=== PATIENT | male | born 1970 | race Caucasian/White ===

== ENCOUNTER → 2017-07-22 05:57 | Day surgery (SDC) | payer OTHER ==
--- NOTE | 2017-07-14 21:42 | HP ---
CC: Dr. Kike Mason; Dr. Gee; Dr. Douglas Varma * ADMITTING HISTORY AND PHYSICAL: DATE OF ADMISSION: 07/22/17 ADMITTING DIAGNOSES: 1. Gross hematuria. 2. Calculus, left ureter. PLANNED PROCEDURE: Left ureteroscopy, possible laser and stent insertion. SURGEON: Gabriel Fontenot MD HISTORY OF PRESENT ILLNESS: Bayron Pino is a 47-year-old gentleman who was evaluated for a 3 to 4-week history of gross hematuria. A CT urogram was obtained by Dr. Mason, which revealed a 6 mm calculus in the left distal ureter with mild obstructive findings. He has been seen in followup on a couple of occasion and a recent x-ray revealed a persistent calculus in the left distal ureter and he would now like to have it removed and is being brought in for left ureteroscopy. PAST MEDICAL HISTORY: Significant for: 1. Chronic pain syndrome. 2. Asthma. 3. COPD. 4. Degeneration of lumbar intervertebral disk. 5. Trigeminal neuralgia. 6. Restless leg syndrome. 7. History of Hodgkin's lymphoma in 1991. PAST SURGICAL HISTORY: Significant for: 1. Cervical lymph node biopsy. 2. [id number] insertion for chemotherapy. MEDICATIONS: On admission: 1. Metaxalone 800 mg for back pain. 2. Hydromorphone 4 mg. 3. Pentoxifylline 400 mg a day. 4. Ventolin inhaler daily. 5. Loratadine 10 mg daily. 6. Gabapentin 100 mg a day. 7. Topamax 100 mg a day. 8. Buspirone 10 mg daily. 9. Clonazepam 0.5 mg p.r.n. 10. Montelukast 10 mg. 11. Aspirin 81 mg. 12. Albuterol inhaler daily. 13. Oxymorphone extended release 15 mg. 14. ProAir inhaler. ALLERGIES AND INTOLERANCES: RABIES VACCINE. SMOKING HISTORY: He is a chronic 1 pack per day smoker for the last 30 years. PHYSICAL EXAMINATION GENERAL: Revealed a pleasant middle-aged gentleman. VITAL SIGNS: Blood pressure is 110/80, pulse 83 per minute, oxygen saturation 97% on room air. LUNGS: Clear bilaterally. CARDIOVASCULAR: Regular rate and rhythm. S1, S2. ABDOMEN: Soft with mild left flank tenderness. IMPRESSION: A 47-year-old gentleman with episodic gross hematuria secondary to a 6 mm calculus in the left distal ureter with mild obstructive findings. Planned procedure is left ureteroscopy, possible laser and stent insertion. [id number]/[facility] #: [id number] [facility]
[~2017-07-22 05:57] MED LIST: Buffered Lidocaine 0.9% SYRIN* 5 ML/SYR SYRINGE INTRADERM ONE; Buffered Lidocaine 0.9% SYRIN* 5 ML/SYR SYRINGE ONE; Dexamethasone IV* 4 MG/ML 1 ML (4 MG) ONE; HYDROcodone/ACETAMIN 5-325 MG* 1 TAB PO PRN; HYDROmorphone INJ* 1 MG/ML CARPUJECT SYRINGE IV PRN; Iohexol 180 (CONTRAST) 10 ML SDV IV ONE; Midazolam* 1 MG/ML 5 ML VIAL (5 MG) ONE; Naloxone* 0.4 MG/ML 1 ML VIAL IV PRN; Ondansetron INJ* 2 MG/ML VIAL IV PRN; Ondansetron INJ* 2 MG/ML VIAL ONE; Tamsulosin CAP* 0.4 MG ONE; cefTRIAXone(*) 2 GM ADDV.VIAL IVPB ONE; fentaNYL* 50 MCG/ML 2 ML VIAL (100 MCG VIAL) IV PRN; fentaNYL* 50 MCG/ML 2 ML VIAL (100 MCG VIAL) ONE; oxyCODONE/Acetamin 5/325 MG* TAB ONE; oxyCODONE/Acetamin 5/325 MG* TAB PO PRN
--- NOTE | 2017-07-22 08:56 | RAD ---
INDICATION: Left ureteral stent insertion COMPARISONS: CT dated June 23, 2017 TECHNIQUE: Fluoroscopy was provided for a retrograde pyelogram and stent placement. Total fluoroscopy time is: 0.1 minutes FINDINGS: Spot images of the straight contrast within the renal collecting system. There is a defect of the proximal ureter which may reflect calculus given history. A ureteral stent is noted. IMPRESSION: FLUOROSCOPY WAS PROVIDED FOR A RETROGRADE PYELOGRAM AND STENT PLACEMENT CPT II Codes: G9500
--- NOTE | 2017-07-22 09:52 | OP ---
CC: Dr. Kike Mason * DATE OF OPERATION: 07/22/17 - [facility] DATE OF : 68 SURGEON: Gabriel Fontenot MD ANESTHESIOLOGIST: Dr. Ortega. ANESTHESIA: General. PRE-OP DIAGNOSES: 1. Gross hematuria. 2. Calculus, left ureter. POST-OP DIAGNOSES: 1. Gross hematuria. 2. Calculus, left ureter. OPERATIVE PROCEDURE: Cystoscopy, left retrograde pyelogram, left ureteroscopy and stone extraction, and left stent insertion. COMPLICATIONS: None. POSTOPERATIVE CONDITION: Stable. STENT USED: A 7-Libyan stent, left ureter. OPERATIVE FINDINGS: 1. Mildly enlarged prostate. 2. Approximately 6 mm calculus left ureter with minimal hydronephrosis, but fairly narrow ureteral orifice. INDICATIONS: Bayron Pino is a 47-year-old gentleman who initially had gross hematuria. This was noted to be secondary to calculus in the left distal ureter , which he still has not been able to pass and he is now being brought in for removal of the same. DESCRIPTION OF PROCEDURE: After induction of general anesthesia, the patient was placed in dorsal lithotomy position. Sequential compression devices were in place and functioning. Initial cystoscopy revealed a normal-appearing urethra and mildly enlarged vascular prostate, the bladder was entered and examined and appeared unremarkable. A guidewire was introduced into the left ureter. The left orifice was somewhat smaller than normal in position which may explain why the calculus has not passed. Retrograde pyelogram revealed minimal fullness of the left collecting system. A 6-Libyan semi-rigid ureteroscope was introduced and advanced under direct vision about 1 cm or 2 above the orifice; 6-mm calculus was noted with some mild surrounding inflammatory response. Using a three-pronged grasper, the stone was engaged and fragmented into 2 pieces, both the pieces were successfully removed. The ureteroscope was reintroduced to make sure there were no additional sizable fragments and none were noted. A 7-Libyan stent was introduced and positioned under fluoroscopy with good proximal and distal positioning obtained. A Sharif catheter was placed for temporary bladder drainage. The patient tolerated the procedure satisfactorily and was transferred back to the recovery area in stable condition. [id number]/[facility] #: [id number] [facility]
[2017-07-22 10:51] VITALS: BP 134/83
== END | disposition home or self-care (01) ==
LOC: OR 05:57
PROVIDERS: ATTEND Urology
DX: N20.1 Calculus of ureter (principal); R31.0 Gross hematuria; G89.4 Chronic pain syndrome; J44.9 Chronic obstructive pulmonary disease, unspecified; G25.81 Restless legs syndrome; Z85.71 Personal history of Hodgkin lymphoma; G50.0 Trigeminal neuralgia
CPT/HCPCS: 74420; 82365; 88300; A9270-GY; C1876; J0696; J1100; J2250; J2405; J3010

== ENCOUNTER 2017-12-14 05:42 | Emergency (ER) | payer OTHER ==
[2017-12-14] MEDS ORDERED: Ondansetron ODT TAB* 4 MG SL ONE (05:52)
[2017-12-14 06:21] LABS: ABS Basophils 0 10^3/ul (0-0.2); ABS Eosinophils 0 10^3/ul (0-0.6); ABS Lymphocytes 1.8 10^3/ul (1.0-4.8); ABS Monocytes 0.8 10^3/ul (0-0.8); ABS Neutrophils 7.5 10^3/ul (1.5-7.7); ABS Nucleated RBC 0 10^3/ul; Eosinophil % 0.2 % (0-6); Hematocrit 44 % (42-52); Hemoglobin 15.2 g/dl (14.0-18.0); Lymphocyte % 17.6 % (25-47); Mean Corpuscular HGB Conc 35 g/dl (31-36); Mean Corpuscular Hemoglobin 30 pg (27-31); Mean Corpuscular Volume 87 fL (80-94); Mean Platelet Volume 7.5 um3 (7.4-10.4); Nucleated Red Blood Cells % 0; Platelet Count 286 10^3/ul (150-450); Red Blood Count 4.99 10^6/ul (4.00-5.40); Red Cell Distribution Width 14 % (10.5-15); White Blood Count 10.1 10^3/ul (3.5-10.8)
[2017-12-14 06:25] LABS: Urine Appearance Clear; Urine Blood Negative (Negative); Urine Color Yellow; Urine Ketones 1+ (Negative); Urine Protein 1+(30 mg/dL) (Negative); Urine Red Blood Cell Trace(0-2/hpf) (Absent); Urine Specific Gravity 1.024 (1.010-1.030); Urine Urobilinogen Negative (Negative); Urine White Blood Cell Trace(0-5/hpf) (Absent)
[2017-12-14 06:40] LABS: EGFR Non-African American 120.4 (>60)
[2017-12-14] MEDS ORDERED: LORazepam TAB(*) 1 MG PO ONE (06:43)
[2017-12-14 08:09] VITALS: BP 132/80
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
== END 2017-12-14 08:08 | disposition home or self-care (01) ==
LOC: ED 05:42
DX: F11.23 Opioid dependence with withdrawal (principal); R10.9 Unspecified abdominal pain; R11.2 Nausea with vomiting, unspecified; F17.210 Nicotine dependence, cigarettes, uncomplicated; F41.9 Anxiety disorder, unspecified; T40.2X5A Adverse effect of other opioids, initial encounter; Y92.9 Unspecified place or not applicable
CPT/HCPCS: 36415; 80053; 80307; 80320; 81003; 81015; 83605; 85025; 87086; 99283; A9270-GY; G0480

== ENCOUNTER 2021-03-28 11:04 | Inpatient (IN) ==
[2021-03-28 12:07] LABS: ABS Basophils 0.1 10^3/ul (0-0.2); ABS Eosinophils 0.2 10^3/ul (0-0.6); ABS Lymphocytes 2.9 10^3/ul (1.0-4.8); ABS Monocytes 1.1 10^3/ul (0-0.8); ABS Neutrophils 5.1 10^3/ul (1.5-7.7); Eosinophil % 1.7 %; Hematocrit 46 % (42-52); Hemoglobin 15.6 g/dL (14.0-18.0); Lymphocyte % 30.9 %; Mean Corpuscular HGB Conc 34 g/dL (31-36); Mean Corpuscular Hemoglobin 31 pg (27-31); Mean Corpuscular Volume 92 fL (80-94); Mean Platelet Volume 8.1 fL (7.4-10.4); Platelet Count 329 10^3/uL (150-450); Red Blood Count 4.95 10^6 /uL (4.18-5.48); Red Cell Distribution Width 14 % (10-15); White Blood Count 9.3 10^3/uL (3.5-10.8)
[2021-03-28 12:26] LABS: ALT 46 U/L (7-52); AST 28 U/L (13-39); Albumin 4.5 g/dL (3.2-5.2); Albumin/Globulin Ratio 1.4 (1-3); Alkaline Phosphatase 68 U/L (35-149); Anion Gap 8 mmol/L (2-11); Blood Urea Nitrogen 23 mg/dL (6-24); CO2 Carbon Dioxide 26 mmol/L (22-32); Calcium 9.7 mg/dL (8.6-10.3); Chloride 103 mmol/L (101-111); Globulin 3.2 g/dL (2-4); Glucose 105 mg/dL (70-100); Lipase 294 U/L (11.0-82.0); Potassium 4.4 mmol/L (3.5-5.0); Sodium 137 mmol/L (135-145); Total Protein 7.7 g/dL (6.4-8.9); eGFR CKD-EPI 104.9 (>60)
[2021-03-28 12:55] LABS: Acetaminophen < 15 mcg/mL; Alcohol, S < 13 mg/dL (<13); Salicylate < 2.50 mg/dL (<30)
[2021-03-28] MEDS ORDERED: Iohexol 300 (CONTRAST) 10 ML SDV IV ONE (13:37)
[2021-03-28] MEDS ORDERED: HYDROmorphone 1 MG/1 ML SYRINGE IV ONE (16:25)
[2021-03-28 17:13] LABS: Urine Appearance Clear; Urine Bilirubin Negative (Negative); Urine Blood Negative (Negative); Urine Color Yellow; Urine Glucose Negative (Negative); Urine Ketones Negative (Negative); Urine Nitrite Negative (Negative); Urine Protein Negative (Negative); Urine Urobilinogen Negative (Negative)
[2021-03-28 17:22] LABS: Urine Specific Gravity > 1.060 (1.002-1.030)
[2021-03-28 17:23] LABS: Urine Benzodiazepine Screen None Detected (None Detect); Urine Cannabinoids Screen Presumptive Positive (None Detect); Urine Opiates Screen Presumptive Positive (None Detect)
[2021-03-28] MEDS ORDERED: HYDROmorphone 1 MG/1 ML SYRINGE IV SLOW PU ONE (17:42)
[2021-03-28] MEDS ORDERED: Ondansetron 4 mg VIAL 2 MG/ML 2 ml VIAL IV PRN (18:36)
[2021-03-28] MEDS ORDERED: Albuterol 2.5mg/3 ml (0.083%) NEB.SOLN INH PRN (18:39)
[2021-03-28] MEDS ORDERED: Albuterol HFA INHALER 8 gm MDI INH PRN (18:39)
[2021-03-28] MEDS ORDERED: HYDROmorphone 1 MG/1 ML SYRINGE IV SLOW PU PRN ×2 (18:42→18:52)
[2021-03-28 18:54] LABS: C Reactive Protein < 1.00 mg/L (<8.01)
[2021-03-28] MEDS: Enoxaparin 40 MG/0.4 ML SYR SUBCUT SCH (21:43)
[2021-03-28] MEDS: Polyethylene Glycol 3350 17 GM PACKET PO SCH (21:44)
[2021-03-28] MEDS: Senna TAB 8.6 mg TAB PO SCH (21:44)
[2021-03-28] MEDS: Lactated Ringers 1000 ml BAG 1,000 ML IV SCH (21:48)
[2021-03-28] MEDS: Lidocaine 4% GEL 10 GM TUBE TOPICAL SCH (22:21)
[2021-03-29] MEDS: Lactated Ringers 1000 ml BAG 1,000 ML IV SCH ×2 (08:05→17:19)
[2021-03-29] MEDS: Lidocaine 4% GEL 10 GM TUBE TOPICAL SCH ×3 (08:07→21:13)
[2021-03-29] MEDS: Polyethylene Glycol 3350 17 GM PACKET PO SCH ×2 (08:07→21:11)
[2021-03-29] MEDS: Senna TAB 8.6 mg TAB PO SCH ×2 (08:07→21:12)
[2021-03-29] MEDS: Benzocaine (DENTAL) 10% TOP.GEL TOPICAL PRN ×3 (08:10→17:16)
[2021-03-29 08:12] LABS: ALT 39 U/L (7-52); AST 24 U/L (13-39); Albumin 3.7 g/dL (3.2-5.2); Albumin/Globulin Ratio 1.4 (1-3); Alkaline Phosphatase 55 U/L (35-149); Anion Gap 3 mmol/L (2-11); Blood Urea Nitrogen 23 mg/dL (6-24); C Reactive Protein 1.02 mg/L (<8.01); CO2 Carbon Dioxide 33 mmol/L (22-32); Calcium 9.1 mg/dL (8.6-10.3); Chloride 101 mmol/L (101-111); Globulin 2.6 g/dL (2-4); Glucose 105 mg/dL (70-100); Lipase 177 U/L (11.0-82.0); Potassium 4.8 mmol/L (3.5-5.0); Sodium 137 mmol/L (135-145); Total Protein 6.3 g/dL (6.4-8.9); eGFR CKD-EPI 104.9 (>60)
[2021-03-29 08:26] LABS: ABS Basophils 0.1 10^3/ul (0-0.2); ABS Eosinophils 0.2 10^3/ul (0-0.6); ABS Lymphocytes 3.1 10^3/ul (1.0-4.8); ABS Monocytes 0.9 10^3/ul (0-0.8); ABS Neutrophils 2.5 10^3/ul (1.5-7.7); Eosinophil % 2.5 %; Hematocrit 41 % (42-52); Hemoglobin 13.9 g/dL (14.0-18.0); Mean Corpuscular HGB Conc 34 g/dL (31-36); Mean Corpuscular Hemoglobin 31 pg (27-31); Mean Corpuscular Volume 93 fL (80-94); Mean Platelet Volume 8.3 fL (7.4-10.4); Platelet Count 290 10^3/uL (150-450); Red Blood Count 4.44 10^6 /uL (4.18-5.48); Red Cell Distribution Width 15 % (10-15); White Blood Count 6.7 10^3/uL (3.5-10.8)
[2021-03-29] MEDS: Enoxaparin 40 MG/0.4 ML SYR SUBCUT SCH (21:12)
[2021-03-30] MEDS: Benzocaine (DENTAL) 10% TOP.GEL TOPICAL PRN ×2 (03:05→08:41)
[2021-03-30] MEDS: Lactated Ringers 1000 ml BAG 1,000 ML IV SCH (03:05)
[2021-03-30 06:03] LABS: Albumin 3.4 g/dL (3.2-5.2); Albumin/Globulin Ratio 1.4 (1-3); Calcium 8.8 mg/dL (8.6-10.3); Globulin 2.4 g/dL (2-4); Potassium 4.3 mmol/L (3.5-5.0); Total Bilirubin 0.3 mg/dL (0.2-1.0); Total Protein 5.8 g/dL (6.4-8.9)
[2021-03-30] MEDS: Polyethylene Glycol 3350 17 GM PACKET PO SCH (08:34)
[2021-03-30] MEDS: Senna TAB 8.6 mg TAB PO SCH (08:34)
[2021-03-30] MEDS: Lidocaine 4% GEL 10 GM TUBE TOPICAL SCH ×2 (08:44→12:59)
[2021-03-30] MEDS ORDERED: Pneumococcal Vac 23-Polyvalent IM ONE (09:00)
[2021-03-30] MEDS ORDERED: Flu vaccine *QUAD* 2021-22* 0.5 ML SYRINGE IM ONE (09:00)
[2021-03-30 11:36] VITALS: BP 124/75
== END 2021-03-30 16:11 | disposition home or self-care (01) | DRG 753 ==
LOC: ED 11:04 → EDHOLD 18:17 → SUATTDRO 18:17 → MEDTELE 21:08
PROVIDERS: ADMIT Nurse Practitioner Family; ATTEND Family Medicine

== ENCOUNTER 2021-05-20 10:44 | Observation (INO) ==
[2021-05-20] MEDS ORDERED: Lactated Ringers 1000 ml BAG 1,000 ML IV ONE (10:55)
[2021-05-20 11:13] LABS: ABS Basophils 0.1 10^3/ul (0-0.2); ABS Eosinophils 0.2 10^3/ul (0-0.6); ABS Lymphocytes 2.6 10^3/ul (1.0-4.8); ABS Monocytes 0.7 10^3/ul (0-0.8); ABS Neutrophils 4.9 10^3/ul (1.5-7.7); Eosinophil % 2.4 %; Hematocrit 50 % (42-52); Hemoglobin 16.7 g/dL (14.0-18.0); Lymphocyte % 31.3 %; Mean Corpuscular HGB Conc 34 g/dL (31-36); Mean Corpuscular Hemoglobin 32 pg (27-31); Mean Corpuscular Volume 94 fL (80-94); Mean Platelet Volume 7.4 fL (7.4-10.4); Nucleated Red Blood Cells % 0.1; Platelet Count 293 10^3/uL (150-450); Red Blood Count 5.28 10^6 /uL (4.18-5.48); Red Cell Distribution Width 15 % (10-15); White Blood Count 8.4 10^3/uL (3.5-10.8)
[2021-05-20 11:33] LABS: Albumin 4.5 g/dL (3.2-5.2); Calcium 9.9 mg/dL (8.6-10.3); Potassium 3.9 mmol/L (3.5-5.0); Total Bilirubin 0.5 mg/dL (0.2-1.0)
[2021-05-20 11:39] LABS: Albumin/Globulin Ratio 1.5 (1-3); Globulin 3.1 g/dL (2-4); Total Protein 7.6 g/dL (6.4-8.9); eGFR CKD-EPI 106.9 (>60)
[2021-05-20] MEDS ORDERED: Iohexol 350 (CONTRAST) 500 ML MDV IV ONE (12:04)
[2021-05-20 12:15] LABS: TSH Ultra Thyroid Stim Horm 0.47 mcIU/mL (0.34-5.60)
[2021-05-20] MEDS ORDERED: Albuterol HFA INHALER 8 gm MDI INH PRN (15:08)
[2021-05-20] MEDS ORDERED: Naloxone Nasal Spray 4 MG/0.1 ML NASAL.SPR INTRANASAL PRN (15:08)
[2021-05-20] MEDS ORDERED: Ondansetron ODT 4 mg TAB 4 MG TAB PO PRN (15:14)
[2021-05-20] MEDS ORDERED: Enoxaparin 40 MG/0.4 ML SYR SUBCUT SCH (17:00)
[2021-05-20] MEDS ORDERED: BENZOCAINE 20% MT PRN (18:49)
[2021-05-20] MEDS: Ondansetron 4 mg VIAL 2 MG/ML 2 ml VIAL IV PRN (21:17)
[2021-05-20] MEDS: Senna TAB 8.6 mg TAB PO SCH (22:22)
[2021-05-21] MEDS: Ondansetron 4 mg VIAL 2 MG/ML 2 ml VIAL IV PRN ×2 (04:32→10:38)
[2021-05-21] MEDS: Polyethylene Glycol 3350 17 GM PACKET PO SCH ×2 (05:02→10:38)
[2021-05-21 06:51] LABS: HDL Cholesterol 62.5 mg/dL
[2021-05-21] MEDS ORDERED: Regadenoson 0.4 MG/5 ML SYRINGE ONE (08:23)
[2021-05-21] MEDS ORDERED: Aminophylline 25 MG/ML VIAL ONE (08:23)
[2021-05-21] MEDS: Senna TAB 8.6 mg TAB PO SCH (10:38)
[2021-05-21 12:18] VITALS: BP 118/72
== END 2021-05-21 12:18 | disposition home or self-care (01) ==
LOC: EDHOLD 10:44 → MEDTELE 17:47
PROVIDERS: ATTEND Internal Medicine